=== PATIENT | female | born 1970 | race Caucasian/White ===

== ENCOUNTER 2023-03-30 12:19 | Outpatient (CLI) | payer OTHER | END 2023-03-30 12:20 | disposition home or self-care (01) | LOC: CSHMAMMO 12:19 | PROVIDERS: ATTEND Specialist | DX: Z12.31 Encounter for screening mammogram for malignant neoplasm of breast (principal); Z80.3 Family history of malignant neoplasm of breast | CPT/HCPCS: 77063; 77067 ==

== ENCOUNTER 2024-03-31 10:53 | Outpatient (CLI) | payer OTHER | END 2024-03-31 10:54 | disposition home or self-care (01) | LOC: CSHMAMMO 10:53 | PROVIDERS: ATTEND Obstetrics & Gynecology | DX: Z12.31 Encounter for screening mammogram for malignant neoplasm of breast (principal); Z80.3 Family history of malignant neoplasm of breast | CPT/HCPCS: 77063; 77067 ==

== ENCOUNTER 2025-01-19 10:32 | Outpatient (CLI) | payer OTHER | END 2025-01-19 10:33 | disposition home or self-care (01) | LOC: CSHRAD 10:32 | PROVIDERS: ATTEND Physician Assistant Medical | DX: R13.10 Dysphagia, unspecified (principal); K22.9 Disease of esophagus, unspecified | CPT/HCPCS: 74220 ==

== ENCOUNTER 2025-02-09 07:33 | Outpatient (CLI) | payer OTHER | END 2025-02-09 07:34 | disposition home or self-care (01) | LOC: CSHCT 07:33 | PROVIDERS: ATTEND Physician Assistant Medical | DX: R13.19 Other dysphagia (principal); R93.3 Abnormal findings on diagnostic imaging of other parts of digestive tract | CPT/HCPCS: 70491; 71260 ==